=== PATIENT | female | born 1990 | race Two or more races ===

== ENCOUNTER → 2023-11-30 | Outpatient (REF) | payer BC | LOC: M LAB REF 12:10 | PROVIDERS: ATTEND Physician Assistant Medical | DX: R53.83 Other fatigue (principal); R63.5 Abnormal weight gain ==

== ENCOUNTER → 2024-01-21 | Outpatient (CLI) | payer BC | LOC: M WUC 13:39 | PROVIDERS: ATTEND Physician Assistant Medical | DX: M25.512 Pain in left shoulder (principal) ==